=== PATIENT | male | born 1995 | race Caucasian/White ===

== ENCOUNTER → 2019-07-21 | Outpatient (CLI) | payer BC ==
[2019-07-21 11:24] LABS: Urine WBC None Seen /hpf (0 - 3)
[2019-07-21 11:35] LABS: Urine Bacteria NONE SEEN /hpf (None Seen); Urine Blood Negative /uL (Negative); Urine Specific Gravity 1.012 (1.001-1.035)
[2019-07-21 11:37] LABS: Basophils # (auto) 0.1 uL; Basophils % (auto) 1.3 % (0.0-2.0); Eosinophils # (auto) 0.5 uL; Hematocrit 46.9 % (41.0-53.0); Lymphocytes # (auto) 1.1 uL; Lymphocytes % (auto) 14.3 % (10.0-50.0); Mean Corpuscular Hgb Conc. 34.1 g/dL (32.0-36.0); Monocytes # (auto) 0.7 uL; Monocytes % (auto) 9.3 % (0.0-12.0); Neutrophils # (auto) 5.2 uL; Neutrophils % (auto) 68.1 % (37.0-80.0); Nucleated Red Blood Cells % 0.2 %; Platelet Count (auto) 269 10^3/uL (140-450); Red Blood Cells 5.33 10^6/uL (4.5-5.90); Red Cell Distribution Width 13.4 % (11.8-14.3); White Blood Cell 7.6 10^3/uL (4.4-10.8)
[2019-07-21 11:57] LABS: Calcium 9.2 mg/dL (8.5-10.1)
[2019-07-21 12:03] LABS: BUN/Creatinine Ratio 16.8; Bilirubin, Total 0.3 mg/dL (0.2-1.0); Total Protein 7.3 g/dL (6.4-8.2)
[2019-07-22 05:06] LABS: RPR Non Reactive (Non Reactive)
[2019-07-24 09:51] LABS: Hepatitis B Surface Antibody Negative
[2019-07-24 10:25] LABS: Hepatitis A Total Antibody Positive
[2019-07-24 11:46] LABS: Hepatitis B Core Total AB Negative; Hepatitis B Surface Antigen Negative (Negative); Hepatitis C Antibody Negative (Negative)
== END | disposition home or self-care (01) ==
LOC: LAB 10:41
PROVIDERS: ATTEND Nurse Practitioner
DX: Z00.00 Encounter for general adult medical examination without abnormal findings (principal); E78.5 Hyperlipidemia, unspecified
CPT/HCPCS: 36415; 80053; 80061; 81001; 82306; 84443; 85025; 86592; 86703; 86704; 86706; 86708; 86803; 87340